=== PATIENT | female | born 1965 ===

== ENCOUNTER 2017-11-01 20:19 | Emergency (ER) | payer MEDICAID ==
[2017-11-01 20:19] VITALS: BMI 27.4
[2017-11-01] MEDS ORDERED: Morphine 2 mg/ml ISec IVP STA (20:35)
[2017-11-01] MEDS ORDERED: Morphine 2 mg/ml ISec ONE (20:43)
[2017-11-01] MEDS ORDERED: Sodium Chloride 0.9% 1,000 ML IV SCH (20:45)
[2017-11-01 21:11] LABS: BASO # 0.02 K/mm3 (0.0-2.0); BASO % 0.2 % (0.0-3.0); EOS # 0.2 (0.0-0.7); EOS % 2.6 % (1.5-5.0); GRAN # 4.53 (1.4-6.5); GRAN % 52.2 % (50.0-68.0); HEMOGLOBIN 12.1 g/dL (12.0-16.0); LYMPH # 3.4 (1.2-3.4); LYMPH % 39.5 % (22.0-35.0); MEAN CELL VOLUME 80.8 fl (80.0-105.0); MEAN CORPUSCULAR HGB CONC 33.4 g/dl (31.0-37.0); MONO # 0.5 (0.1-0.6); MONO % 5.5 % (1.0-6.0); RBC 4.48 10^6/uL (3.5-6.1); WHITE BLOOD COUNT 8.7 10^3/ul (4.5-11.0)
[2017-11-01 21:15] VITALS: BP 153/81; PULSE 73; RESP 18; TEMP 98.2; O2SAT 99
[2017-11-01 21:23] LABS: ALB/GLOB RATIO 1.3 (1.1-1.8); ALBUMIN 4.5 g/dL (3.0-4.8); ALT/SGPT 54 U/L (7-56); AST/SGOT 102 U/L (14-36); BLOOD UREA NITROGEN 14 mg/dL (7-21); CALCIUM 9.4 mg/dL (8.4-10.5); GFR AFRICAN-AMERICAN > 60; GFR NON-AFRICAN AMERICAN > 60; LIPASE 135 U/L (23-300)
--- NOTE | 2017-11-01 22:01 | ED PDOC ---
Arrival/HPI - General Chief Complaint: Back Pain Time Seen by Provider: 11/01/17 20:23 Historian: Patient - History of Present Illness Narrative History of Present Illness (Text): 11/01/17 20:33 A 52 year old male with no significant past medical history presents to the emergency department complaining of abdominal pain since yesterday. Patient reports intense pain prioir to arrival to emergency department. Patient reports experiencing nausea and vomiting. Patient denies any fever, chills, chest pain, shortness of breath, diarrhea, dysuria, hematuria, urinary symptoms, back pain, neck pain, headache, dizziness, or any other complaints. PMD:Dr. Montgomery Time/Duration: 24 hours (yesterday) Symptom Onset: Gradual Symptom Course: Unchanged Activities at Onset: Light Context: Home Past Medical History - Provider Review Nursing Documentation Reviewed: Yes - Infectious Disease Hx of Infectious Diseases: None - Tetanus Immunization Tetanus Immunization: Unknown - Past Medical History Past Medical History: No Previous - Cardiac Hx Hypertension: Yes - Pulmonary Hx Respiratory Disorders: No (pt denies) - Neurological Other/Comment: brain shrinkage - HEENT Hx HEENT Disorder: No - Renal Hx Renal Disorder: No (pt denies) - Endocrine/Metabolic Hx Endocrine Disorders: No (pt denies) - Hematological/Oncological Hx Anemia: Yes Other/Comment: had blood transfusion last month - Integumentary Hx Dermatological Disorder: No - Musculoskeletal/Rheumatological Hx Arthritis: Yes Hx Falls: No - Genitourinary/Gynecological Other/Comment: Ectopic . - Psychiatric Hx Depression: Yes Hx Emotional Abuse: No Hx Physical Abuse: No Hx Substance Use: No - Surgical History Hx Cholecystectomy: Yes Other/Comment: Ectopic - Anesthesia Hx Anesthesia: Yes Hx Anesthesia Reactions: No Hx Malignant Hyperthermia: No - Suicidal Assessment Feels Threatened In Home Enviroment: No Family/Social History - Physician Review Nursing Documentation Reviewed: Yes Family/Social History: Unknown Family HX Smoking Status: Never Smoked Hx Alcohol Use: Yes Hx Substance Use: No Hx Substance Use Treatment: No Allergies/Home Meds Allergies/Adverse Reactions: Allergies No Known Allergies Allergy (Verified 10/23/15 03:04) Home Medications: Home Meds Medication Instructions Recorded Confirmed Donepezil [Aricept] 10 mg PO DAILY 02/21/16 02/21/16 Unk Bp Pill 02/21/16 Review of Systems - Physician Review All systems were reviewed & negative as marked: Yes - Review of Systems Constitutional: absent: Fevers, Night Sweats Respiratory: absent: SOB Cardiovascular: absent: Chest Pain Gastrointestinal: Nausea, Vomiting. absent: Abdominal Pain, Stool Changes, Constipation, Diarrhea, Appetite Changes, Hematochezia, Hematemesis, Anorexia, Food Intolerance Genitourinary Female: absent: Dysuria, Hematuria, Urine Output Changes Musculoskeletal: absent: Back Pain, Neck Pain Neurological: absent: Headache, Dizziness Physical Exam Vital Signs Reviewed: Yes Vital Signs Temp Pulse Resp BP Pulse Ox 11/01/17 21:14 98.2 F 73 18 153/81 H 99 Temperature: Afebrile Blood Pressure: Hypertensive Pulse: Regular Respiratory Rate: Normal Appearance: Positive for: Well-Appearing, Non-Toxic, Comfortable Pain Distress: None Mental Status: Positive for: Alert and Oriented X 3 - Systems Exam Head: Present: Atraumatic, Normocephalic Pupils: Present: PERRL Extroacular Muscles: Present: EOMI Conjunctiva: Present: Normal Mouth: Present: Moist Mucous Membranes Neck: Present: Normal Range of Motion Respiratory/Chest: Present: Clear to Auscultation, Good Air Exchange. No: Respiratory Distress, Accessory Muscle Use Cardiovascular: Present: Regular Rate and Rhythm, Normal S1, S2. No: Murmurs Abdomen: Present: Tenderness (mild diffuse tenderness ). No: Distention, Peritoneal Signs, Rebound, Guarding, McBurney's Point Tender, Rovsing's Sign Present, Hernias, Feeding Tubes, Ostomy Tubes, Mass/Organomegaly, Scars Back: Present: CVA Tenderness (Mild CVA Tenderness). No: Normal Inspection, Midline Tenderness, Paraspinal Tenderness, Pain with Leg Raise, Decubitus Ulcer Upper Extremity: Present: Normal Inspection. No: Cyanosis, Edema Lower Extremity: Present: Normal Inspection. No: Edema Neurological: Present: GCS=15, CN II-XII Intact, Speech Normal Skin: Present: Warm, Dry, Normal Color. No: Rashes Psychiatric: Present: Alert, Oriented x 3, Normal Insight, Normal Concentration Medical Decision Making ED Course and Treatment: 11/01/17 20:52 Impression: 52 year old female presenting to the Emergency Department with abdominal pain. Plan: -- CT Abdomen and Pelvis without PO -- Drug screen, Urine -- Toradol -- Morphine -- Zofran -- IV Fluids -- Urine Culture -- Urinalysis -- Reassess and disposition Prior Visits: Notes and results from previous visits were reviewed. Progress Notes: - Lab Interpretations Lab Results: 11/01/17 20:25 11/01/17 20:25 Lab Results 11/01/17 20:25: Sodium 142, Potassium 3.9, Chloride 105, Carbon Dioxide 23, Anion Gap 18, BUN 14, Creatinine 0.7, Est GFR ( Amer) > 60, Est GFR (Non- Af Amer) > 60, Random Glucose 107, Calcium 9.4, Magnesium 1.9, Total Bilirubin 0.3, AST 102 H, ALT 54, Alkaline Phosphatase 118, Total Protein 7.9, Albumin 4.5 , Globulin 3.4, Albumin/Globulin Ratio 1.3, Lipase 135 11/01/17 20:25: WBC 8.7, RBC 4.48, Hgb 12.1, Hct 36.2, MCV 80.8, MCH 27.0, MCHC 33.4, RDW 14.0, Plt Count 364, MPV 9.0, Gran % 52.2, Lymph % (Auto) 39.5 H, [place] % (Auto) 5.5, Eos % (Auto) 2.6, Baso % (Auto) 0.2, Gran # 4.53, Lymph # ( Auto) 3.4, [place] # (Auto) 0.5, Eos # (Auto) 0.2, Baso # (Auto) 0.02 - Medication Orders Current Medication Orders: Sodium Chloride (Sodium Chloride 0.9%) 1,000 mls @ 100 mls/hr IV .Q10H [facility] Last Admin: 11/01/17 20:48 Dose: 100 mls/hr eMAR Start Stop Document 11/01/17 20:48 JOL (Rec: 11/01/17 20:48 JOL [id number]) Intravenous Solution Start Date 11/01/17 Start Time 20:48 Discontinued Medications Ketorolac Tromethamine (Toradol) 30 mg IVP STAT STA Stop: 11/01/17 20:35 Last Admin: 11/01/17 20:49 Dose: 30 mg MAR Pain Assessment Document 11/01/17 20:49 JOL (Rec: 11/01/17 20:49 JOL [id number]) Pain Reassessment Is this a pain reassessment? No Sleep Is patient sleeping during reassessment? No Presence of Pain Presence of Pain Yes Location Left, Right or Bilateral Right Upper or Lower Lower Pain Location Body Site Abdomen Back Description Intensity of Pain at present 10 Pain Behavior Moaning Crying Withdrawal from Touch Restlessness Facial Grimacing IVP Administration Document 11/01/17 20:49 JOL (Rec: 11/01/17 20:49 JOL [id number]) Charges for Administration # of IVP Administrations 1 Morphine Sulfate (Morphine) 2 mg IVP STAT STA Stop: 11/01/17 20:36 Last Admin: 11/01/17 20:49 Dose: 2 mg MAR Pain Assessment Document 11/01/17 20:49 JOL (Rec: 11/01/17 20:49 JOL [id number]) Pain Reassessment Is this a pain reassessment? No Sleep Is patient sleeping during reassessment? No Presence of Pain Presence of Pain Yes Pain Scale Used Pain Scale Used Numeric Location Left, Right or Bilateral Right Upper or Lower Lower Pain Location Body Site Abdomen Back Description Intensity of Pain at present 10 Pain Behavior Moaning Crying Withdrawal from Touch Restlessness Facial Grimacing Aggravating Factors ADL's Changing Position IVP Administration Document 11/01/17 20:49 JOL (Rec: 11/01/17 20:49 JOL [id number]) Charges for Administration # of IVP Administrations 1 Ondansetron HCl (Zofran Inj) 4 mg IVP STAT STA Stop: 11/01/17 20:35 Last Admin: 11/01/17 20:50 Dose: 4 mg IVP Administration Document 11/01/17 20:50 JOL (Rec: 11/01/17 20:50 JOL [id number]) Charges for Administration # of IVP Administrations 1 - Scribe Statement The provider has reviewed the documentation as recorded by the Derek Bang All medical record entries made by the Annetteibdebbie were at my direction and personally dictated by me. I have reviewed the chart and agree that the record accurately reflects my personal performance of the history, physical exam, medical decision making, and the department course for this patient. I have also personally directed, reviewed, and agree with the discharge instructions and disposition. Disposition/Present on Arrival - Present on Arrival Any Indicators Present on Arrival: No History of DVT/PE: No History of Uncontrolled Diabetes: No Urinary Catheter: No History of Decub. Ulcer: No History Surgical Site Infection Following: None - Disposition Have Diagnosis and Disposition been Completed?: Yes Diagnosis: Flank pain Disposition: AGAINST MEDICAL ADVICE Disposition Time: 22:20 Patient Problems: Current Active Problems Problem Status Onset Flank pain Acute Condition: UNKNOWN Discharge Instructions (ExitCare): Low Back Pain in Adults Additional Instructions: MILADIS JOE, thank you for letting us take care of you today. Your provider was Layo Murillo DO and you were treated for ABDOMINAL PAIN. The emergency medical care you received today was directed at your acute symptoms. If you were prescribed any medication, please fill it and take as directed. It may take several days for your symptoms to resolve. Return to the Emergency Department if your symptoms worsen, do not improve, or if you have any other problems. Please contact your doctor or call one of the physicians/clinics you have been referred to that are listed on the Patient Visit Information form that is included in your discharge packet. Bring any paperwork you were given at discharge with you along with any medications you are taking to your follow up visit. Our treatment cannot replace ongoing medical care by a primary care provider outside of the emergency department. Thank you for allowing the [facility] team to be part of your care today. YOU SIGNED OUT AGAINST MEDICAL ADVICE. PLEASE SEE YOUR PRIMARY CARE DOCTOR SOON POSSIBLE. Prescriptions: Ibuprofen [Motrin] 600 mg PO Q6 PRN #20 tab PRN Reason: Pain, Moderate (4-7) Referrals: Sawyer Montgomery Jr., MD [Primary Care Provider] - Follow up with primary Forms: [employer] (Greek)
== END 2017-11-01 22:25 | disposition left against medical advice (07) ==
LOC: ED 20:19
DX: R10.9 Unspecified abdominal pain (principal); I10 Essential (primary) hypertension
CPT/HCPCS: 80053; 83690; 83735; 85025; 96374; 96375; 99284; J1885; J2270; J2405; J7030

== ENCOUNTER 2018-06-03 15:33 | Outpatient (CLI) | payer MEDICAID | END 2018-06-03 15:34 | disposition home or self-care (01) | LOC: RAD 15:33 ==